=== PATIENT | female | born 1985 | race Caucasian/White ===

== ENCOUNTER 2017-06-02 02:30 | Emergency (ER) | payer BC ==
[~2017-06-02] VITALS: Ht 162.6 cm; Wt 54.9 kg
[2017-06-02 02:36] VITALS: Ht 162.6 cm; Wt 54.9 kg
[2017-06-02 03:06] LABS: UA SPECIFIC GRAVITY <=1.005 (1.005-1.035); microscopic required? YES; urine erythrocyte TRACE (NEGATIVE)
[2017-06-02 04:45] VITALS: BP 120/82
== END 2017-06-02 04:45 | disposition home or self-care (01) ==
LOC: ED 02:30
PROVIDERS: Emergency Medicine
DX: N12 Tubulo-interstitial nephritis, not specified as acute or chronic (principal)
CPT/HCPCS: J1885; Q0162

== ENCOUNTER 2018-11-20 19:31 | Emergency (ER) | payer BC ==
[~2018-11-20] VITALS: Ht 162.6 cm; Wt 65.3 kg
[2018-11-20 19:39] VITALS: Ht 162.6 cm; Wt 65.3 kg
[2018-11-20 22:37] LABS: BASOPHIL % 0.5 % (0-2); PLATELET COUNT 292 x10^3mcL (130-400); RED CELL DISTRIBUTION WIDTH 14.2 % (11.5-14.5)
[2018-11-20 22:42] LABS: UA SPECIFIC GRAVITY <=1.005 (1.005-1.035); microscopic required? YES; urine erythrocyte NEGATIVE (NEGATIVE)
[2018-11-20 22:45] LABS: CALCIUM 8.9 mg/dL (8.5-10.1); CARBON DIOXIDE 25.9 mmol/L (21-32); CHLORIDE SERUM 105 mmol/L (98-107); CREATININE SERUM 0.7 mg/dL (0.6-1.0); GFR1 > 60 mL/min; GLUCOSE SERUM 102 mg/dL (74-106); POTASSIUM SERUM 3.7 mmol/L (3.5-5.1); SODIUM SERUM 141 mmol/L (136-145)
[2018-11-20 22:57] LABS: ALBUMIN 4.1 g/dL (3.4-5.0); ALKALINE PHOSPHATASE 43 U/L (46-116); ALT/SGPT 23 U/L (14-59); AST/SGOT 14 U/L (15-37); BILIRUBIN TOTAL 0.3 mg/dL (0.20-1.00); CHOLESTEROL 168 mg/dL (<200); HDL CHOLESTEROL 51 mg/dL (40-60); LIPASE 93 IU/L (73-393); TOTAL PROTEIN, SERUM 7.7 g/dL (6.4-8.2)
[2018-11-20 23:40] LABS: AMPHETAMINE QUAL UR NONE DETECTED (See below)
[2018-11-21 01:47] VITALS: BP 120/73
== END 2018-11-21 01:47 | disposition home or self-care (01) ==
LOC: ED 19:31
PROVIDERS: Emergency Medicine
DX: R07.89 Other chest pain (principal); R06.02 Shortness of breath; R00.2 Palpitations; R42 Dizziness and giddiness; R11.0 Nausea
CPT/HCPCS: 36415; 83880; 85378; J1885; J3490; Q0092

== ENCOUNTER 2019-09-07 13:15 | Emergency (ER) | payer BC ==
[~2019-09-07] VITALS: Ht 160 cm; Wt 58.1 kg
[2019-09-07 13:24] VITALS: Ht 160 cm; Wt 58.1 kg
[2019-09-07 15:47] LABS: BASOPHIL % 0.5 % (0-2); PLATELET COUNT 334 x10^3mcL (130-400); RED CELL DISTRIBUTION WIDTH 13.9 % (11.5-14.5)
[2019-09-07 16:11] LABS: CALCIUM 8.9 mg/dL (8.5-10.1); CHLORIDE SERUM 103 mmol/L (98-107); CREATININE SERUM 0.7 mg/dL (0.6-1.0); GFR1 > 60 mL/min; GLUCOSE SERUM 95 mg/dL (74-106); POTASSIUM SERUM 4.4 mmol/L (3.5-5.1); SODIUM SERUM 141 mmol/L (136-145)
[2019-09-07 16:15] LABS: ALBUMIN 4.2 g/dL (3.4-5.0); ALKALINE PHOSPHATASE 36 U/L (46-116); ALT/SGPT 19 U/L (14-59); AMYLASE 44 U/L (25-115); AST/SGOT 16 U/L (15-37); BILIRUBIN TOTAL 0.2 mg/dL (0.20-1.00); LIPASE 92 IU/L (73-393); TOTAL PROTEIN, SERUM 7.7 g/dL (6.4-8.2)
[2019-09-07 17:30] VITALS: BP 107/67
== END 2019-09-07 17:57 | disposition home or self-care (01) ==
LOC: ED 13:15
PROVIDERS: Emergency Medicine
DX: K29.70 Gastritis, unspecified, without bleeding (principal); K21.9 Gastro-esophageal reflux disease without esophagitis
CPT/HCPCS: J2405; J7030; Q0092